=== PATIENT | female | born 1985 | race Caucasian/White ===

== ENCOUNTER 2020-08-28 14:11 | Emergency (ER) | payer BC, SELFPAY ==
[2020-08-28 14:10] VITALS: BP 119/73; PULSE 96; RESP 18; TEMP 36.6; O2SAT 100
--- NOTE | 2020-08-28 14:19 | ED.ABDPAIN ---
HPI - Abdominal Pain General Chief Complaint: Abdominal Pain Stated Complaint: back pain/21 weeks Time Seen by Provider: 08/28/20 14:12 History of Present Illness HPI narrative: bilateral lower back pain radiating to the flanks and lower abdomen since earlier this afternoon. Severe. Exacerbated by movement. Associated with nausea. Additionally she reports a migraine headache. All symptoms started after an argument with her son. She is 21 weeks . She has never had this type of pain before. Related Data Home Medications Medication Instructions Recorded Confirmed fluoxetine [Prozac] 20 mg PO DAILY 08/28/20 [id number] tablet PO 08/28/20 [] zolpidem [Ambien] 10 mg PO HS PRN 08/28/20 Allergies Allergy/AdvReac Type Severity Reaction Status Date / Time No Known Allergies Allergy Verified 08/28/20 14:23 Review of Systems Review of Systems: All systems reviewed & are unremarkable except as noted in HPI and below Constitutional: Constitutional: Reports no additional constitutional complaints ENT: Reports system reviewed and no additional complaints, except as documented Cardiovascular: Cardiovascular: Denies chest pain Respiratory: Respiratory: Denies dyspnea Gastrointestinal: Gastrointestinal: Reports abdominal pain and Reports nausea Genitourinary: Genitourinary: Reports no additional female genitourinary complaints, Denies abnormal vaginal bleeding and Denies vaginal discharge Musculoskeletal: Musculoskeletal: Reports back pain Neurologic: Reports system reviewed and no additional complaints, except as documented Psychiatric: Psychiatric: Reports anxiety [facility] Past Medical History Medical History (Updated 08/28/20 @ 16:06 by Darien Jung MD) Anxiety Migraine Social History Social History (Updated 08/28/20 @ 14:32 by Darien Jung MD) Smoking status: Never smoker Exam Const: General: healthy appearing and alert Orientation/consciousness: patient oriented x3 Other: mild distress HENMT: Head: normal to inspection Neck: Neck: normal visual inspection Resp: Effort & Inspection: normal respiratory effort Auscultation: clear to auscultation bilaterally Cardio: Rate: regular rate Rhythm: regular rhythm GI: Other: Gravid, nontender Back/Spine/Pelvis: Other: lumbar paraspinal tenderness Skin: General skin exam: normal color Neuro: General: patient oriented x3, moves all extremities and no focal motor deficits Speech: normal speech Extrem: General: normal to inspection Psych: Affect: Anxious affect present Course Vital Signs Vital signs: Vital Signs Temperature 36.6 C 08/28/20 14:10 Pulse Rate 96 08/28/20 14:10 Respiratory Rate 18 08/28/20 14:10 Blood Pressure 119/73 08/28/20 14:10 Pulse Oximetry 100 08/28/20 14:10 Temperature 36.4 C L 08/28/20 15:26 Pulse Rate 78 08/28/20 15:26 Respiratory Rate 18 08/28/20 15:26 Blood Pressure 100/57 L 08/28/20 15:26 Pulse Oximetry 100 08/28/20 15:26 MDM - Abdominal Pain MDM Narrative Medical decision making narrative: Headache and back pain significantly improved with treatment. Evaluated by OB and cleared. Differential Diagnosis Differential diagnosis: Likely other (low back strain, migraine, contractions) Medical Records Attestation: I reviewed the patient's medical records. Lab Data Attestation: I reviewed the patient's lab results. Result diagrams: 08/28/20 14:37 08/28/20 14:37 Labs: Lab Results 08/28/20 08/28/20 08/28/20 Range/Units 14:37 14:37 15:38 WBC 11.3 H (4.5-10.0) K/mm3 RBC 4.25 (4.2-5.4) M/mm3 Hgb 13.1 (12.0-15.0) g/dL Hct 38.7 (37.0-47.0) % MCV 91.1 (80-100) fl MCH 30.8 (26-34) pg MCHC 33.9 (32-36) g/dl RDW 13.3 (11.5-14.5) % Plt Count 263 (150-375) k/mm3 MPV 10.5 H (7.4-10.4) fl Immature Gran % (Auto) 1.1 H (0-0.5) % Neut % (Auto)
--- NOTE | 2020-08-28 14:25 | PC.NURSE ---
ob furnace attendant contacted. will come check pt and monitor pt in ed.
[2020-08-28] MEDS: DEXTROSE 5%/0.45% SOD CHL 1,000 ML 1000 ML IV CONT (14:32)
[2020-08-28] MEDS: diazePAM INJ (*CRX) 10 MG/2 ML SYRINGE 5 MG IV PUSH (14:33)
[2020-08-28] MEDS: METOCLOPRAMIDE HCL INJ 10 MG/2 ML VIAL IV PUSH (14:34)
--- NOTE | 2020-08-28 14:36 | PC.NURSE ---
OB RN in room for monitoring at this time.
[2020-08-28 14:47] LABS: Basophils Absolute Auto 0.1 K/mm3 (0.0-0.1); Basophils Percent Auto 0.4 % (0.2-1.2); Eosinophils Absolute Auto 0.2 K/mm3 (0-0.3); Eosinophils Percent Auto 1.8 % (0-4.4); Hematocrit 38.7 % (37.0-47.0); Hemoglobin 13.1 g/dL (12.0-15.0); Immature Granulocyte Absolute 0.12 K/mm3 (0.00-0.031); Immature Granulocyte Percent A 1.1 % (0-0.5); Lymphocytes Absolute Auto 1.66 K/mm3 (0.9-3.2); Lymphocytes Percent Auto 14.7 % (18.3-44.2); Mean Corpuscular HGB Conc 33.9 g/dl (32-36); Mean Corpuscular Hemoglobin 30.8 pg (26-34); Mean Corpuscular Volume 91.1 fl (80-100); Mean Platelet Volume 10.5 fl (7.4-10.4); Monocytes Absolute Auto 0.7 K/mm3 (0.1-0.6); Monocytes Percent Auto 6.4 % (2.6-8.5); Neutrophils Absolute Auto 8.6 K/mm3 (1.3-6.7); Neutrophils Percent Auto 75.6 % (45.5-73.1); Platelet Count Result 263 k/mm3 (150-375); Red Blood Count 4.25 M/mm3 (4.2-5.4); Red Cell Distribution Width 13.3 % (11.5-14.5); White Blood Count 11.3 K/mm3 (4.5-10.0)
--- NOTE | 2020-08-28 14:52 | PC.NURSE ---
EAB2, at 21 2/7 weeks , present to ER with back pain and flank pain. Patient denies contractions. Monitored for Approx 25 minutes. FHt's 145's, moderate variability, reassuring for gestational age. No contractions were noted on monitor or palpated. Good movement noted.
[2020-08-28 15:02] LABS: Alanine Aminotransferase 19 U/L (4-35); Albumin Level 3.7 g/dL (3.5-5.1); Alkaline Phosphatase 62 U/L (38-126); Anion Gap 4 mmol/L (8-16); Aspartate Amino Transferase 23 U/L (14-36); Bilirubin,Total 0.2 mg/dL (0.2-1.3); Blood Urea Nitrogen 9 mg/dL (7-17); Calcium 8.9 mg/dL (8.4-10.2); Carbon Dioxide 24 mmol/L (22-30); Chloride 105 mmol/L (98-107); Estimated CRCL calculation 118 ml/min; Estimated Glomerular Filt Rate > 60; Glucose 83 mg/dL (65-105); Lipase 117 U/L (23-300); Potassium 3.6 mmol/L (3.4-5.0); Sodium 133 mmol/L (137-145)
[2020-08-28 15:26] VITALS: BP 100/57; PULSE 78; RESP 18; TEMP 36.4; O2SAT 100
[2020-08-28 15:50] LABS: Add Urine Microscopic? YES; Appearance Urine Cloudy (Clear); Bacteria Urine 1+ /hpf; Bilirubin Urine Negative (Negative); Blood Urine Negative (Negative); Color Urine Straw (Yellow); Glucose Urine UA 1+ mg/dL (Negative); Ketones Urine Negative (Negative); Leukocyte Esterase Ur Negative LEU/UL (Negative); Nitrate Urine Negative (Negative); Protein Urine Negative (Negative); RBC Urine 0-2 /hpf (0-2); Specific Grav Ur 1.005 (1.001-1.035); Squamous Epithelial Cell Urine Moderate /hpf (Few); Urobilinogen Urine Negative mg/dL (<2.0); WBC Urine 0-3 /hpf
[2020-08-28 16:30] VITALS: BP 101/65; PULSE 102; RESP 25; TEMP 36.8; O2SAT 100
== END 2020-08-28 16:35 | disposition home or self-care (01) ==
PROVIDERS: Emergency Provider Emergency Medicine; PCP Internal Medicine
DX: O99.891 Other specified diseases and conditions complicating pregnancy (principal); M54.5 Low back pain; O99.352 Diseases of the nervous system complicating pregnancy, second trimester; G43.909 Migraine, unspecified, not intractable, without status migrainosus; O99.342 Other mental disorders complicating pregnancy, second trimester; F41.9 Anxiety disorder, unspecified; Z3A.21 21 weeks gestation of pregnancy
CPT/HCPCS: 36415; 80053; 81001; 83690; 85025; 96361; 96374; 96375; 99284; J2765; J3360

== ENCOUNTER 2024-09-23 05:49 | Emergency (ER) | payer BC, SELFPAY ==
--- NOTE | ~2024-09-23 | CT_ITS ---
Noncontrast CT scan of the cervical spine Technique: Multiple contiguous axial [address] images of the cervical spine were obtained and rec onstructed in 2D sagittal and coronal planes on the acquisition scanner. Dose reduction technique was used on this scan by utilizing automated exposure control, adjustment of the mA and/or kV according to patient size. The dose-length product (DLP) was 549.74 mGy-cm. Clinical History: Pain Findings: No acute fractures or dislocations. 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 The intervertebral disc spaces are preserved. No prevertebral soft tissue swelling. Impression: No acute fracture or subluxation of the cervical spine. 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 Reviewed, dictated and finalized at location . Impression: No acute fracture or subluxation of the cervical spine. 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
--- NOTE | ~2024-09-23 | CT_ITS ---
Non-contrast Head CT History: Status post fall Technique: Axial non-contrast imaging of the brain was performed. Dose reduction technique was used on this scan by utilizing automated exposure control and iterative reconstruction technique. The dose -length product (DLP) was 605.33 mGy-cm. Findings: There is no evidence of intracranial hemorrhage, mass lesion, or acute infarct. Brain par enchyma appears normal. The ventricles and subarachnoid spaces are normal in size. The calvarium ap pears normal. The visualized paranasal sinuses and mastoid air cells are clear. Impression: No significant abnormality seen. Reviewed, dictated and finalized at location . Impression: No significant abnormality seen.
--- OUTSIDE RECORDS SUMMARY | 2024-09-23 05:52 | XMS_ITS | Continuity of Care Document ---
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 Role Phone Romeo Gaitan MD Unavailable Unavailable Allergies, Adverse Reactions, Alerts Substance Reaction Status Criticality No Known Allergies Active No Inform ation Medications Medication Instructions Dosage Effective Dates (start - stop) Status Comments Adderall 20 mg tablet take 1 tablet by o ral route 2 times every day before breakfast and at noon 20 MG - Active Wellbutrin XL 150 mg 24 hr tablet, extended release take 1 tablet by oral route every morning 150 MG - Active Ambien 10 mg tablet take 1 tablet by ora l route every day at bedtime 10 MG - Active Procedures Procedure Date PREV VISIT, EST, AGE 18-39 OFFICE/OUTPATIENT VISIT, EST OFFICE/OUTPATIENT VISIT, EST OFFICE/OUTPATIENT VISIT, EST OFFICE/OUTPATIENT VISIT, EST OFFICE/OUTPATIENT VISIT, EST OFFICE/OUTPATIENT VISIT, EST OFFICE/OUTPATIENT VISIT, EST OFFICE/OUTPATIENT VISIT, EST PREV VISIT, NEW, AGE 18-39 Advance Directives Directive Yes / No Effective Date File Name No Information Encounters Encounter Description Practice Location Reason(s) For Visit Diagnoses Date Provider Providers Copied on Encounter PREV VISIT, EST, AGE 18-39 [facility], [address], [place], [id number], [place] tel:[phone] [facility] physical (chief complaint) Encounter for general adult medical exam w abnormal findingsPrimary insomniaGeneralized Anxiety DisorderAttention deficit 2 Arnie Walters. [address], [place], [place], [address] , [place]. tel:[phone] OFFICE/OUTPA TIENT VISIT, [facility], [address], [place], [place], [address], [place] tel:[phone] [facility] sinus1 (chief complaint) insomnia1 (chief complaint) headache1 (chief complaint) InsomniaMigraineAcu te sinusitis 9 Arnie Walters. [address], [place], [place], [address] , [place]. tel:[phone] OFFICE/OUTPA TIENT VISIT, [facility], [address], [place], [place], [address], [place] tel:[phone] [facility] insomnia1 (chief complaint) anxiety1 (chief complaint) headache1 (chief complaint) allergy1 (chief complaint) MigraineInsomniaGen eralized Anxiety DisorderAllergic rhinitis 9 Arnie Walters. [address], [place], [place], [address] , [place]. tel:[phone] OFFICE/OUTPA TIENT VISIT, [facility], [address], [place], [place], [address], [place] tel:[phone] [facility] insomnia1 (chief complaint) anxiety1 (chief complaint) migraine1 (chief complaint) allergy1 (chief complaint) Allergic rhinitisInsomniaMig raineGeneralized Anxiety Disorder 8 Arnie Walters. [address], [place], [place], [address] , [place]. tel:[phone] Referring Provider: Li [address], [place], [place], [address]. tel:[phone] OFFICE/OUTPA TIENT VISIT, [facility], [address], [place], [place], [address], [place] tel:[phone] [facility] migraine1 (chief complaint) anxiety1 (chief complaint) insomnia1 (chief complaint) MigraineInsomniaGen eralized Anxiety Disorder 8 Arnie Guzman [address], [place], [place], [address] , [place]. tel:[phone] Referring Provider: Li [address], [place], [place], [address]. tel:[phone] OFFICE/OUTPA TIENT VISIT, [facility], [address], [place], [place], [address], [place] tel:[phone] [facility] headache1 (chief complaint) insomnia1 (chief complaint) anxiety1 (chief complaint) InsomniaMigraineGen eralized Anxiety Disorder 8 Arnie Guzman [address], [place], [place], [address] , [place]. tel:[phone] Referring Provider: Li Hernandez [address], [place], [place], [address]. tel:[phone] OFFICE/OUTPA TIENT VISIT, [facility], [address], [place], [place], [address], [place] tel:[phone] [facility] headache1 (chief complaint) insomnia1 (chief complaint) anxiety1 (chief complaint) InsomniaGeneralized Anxiety DisorderMigraineTob acco use [address] Arnie [address], [place], [place], [address] , [place]. tel:[phone] Referring Provider: Li Hernandez [address], [place], [place], [address]. tel:[phone] OFFICE/OUTPA TIENT VISIT, [facility], [address], [place], [place], [address], [place] tel:[phone] [facility] anxiety1 (chief complaint) insomnia1 (chief complaint) tobacco1 (chief complaint) InsomniaTobacco useGeneralized Anxiety Disorder 7 Arnie Guzman [address], [place], [place], [address] , . tel:[phone] Referring Provider: Romeo Gaitan, [address], [place], [place], [address]. tel:[phone] PREV VISIT, NEW, AGE 18-39 [facility], [address], [place], [place], [address], [place] tel:[phone] [facility] PHysical (chief complaint) Encntr for general adult medical exam w/o abnormal findings 7 Arnie Walters. [address], [place], [place], [address] , [place]. tel:[phone] Family History Family Member Type Diagnosis Age At Onset Mother Problem (finding) Alive and well Father Problem (finding) Alive and well Sister Problem (finding) Alive and well Payers Payer name Insurance type Covered democrat ID Authoriza tion(s) No Information Social History Type Description Quantity Date Captured Comments Alcohol Use Details Caffeine Use Details coffee 2 cups per day Tobacco Use Status Ex-cigarette smoker Smoking Status Current some day smoker Smoking Tobacco Use Details Cigarette: Age Started: 20, Age Stopped: 30, Years Used 10 Cigarette: 1 Packs per day, Pack Year: 10 Sex Female Vital Signs Date / Time: Height Weight BMI Pulse Rate Blood Pressure Temperature Respiratory Rate Body Surface Area Head Circumference BMI percentile Pulse Ox Inhaled Ox 12:24 PM 62.60 in 134.00 lbs 24.0 4 kg/m eter (2) 86 /min 118/88 mm[Hg] 98.4 F 16 /min Chief Complaint And Reason For Visit From encounter dated '01/24/2022 12:20'. physical (chief complaint). Description: Pt needs annual physical pt has chronic anxiety and depression Pt takes Wellbutrin and doing ok. Pt denies any suicidal or homicidal thought pt denies any crying spells. Pt has insomnia Pt takes ambien qhs and doing ok. Pt has ADD. Pt takes adderall 20 mg BID and doing ok. Her psychiatrist got sick and retired and her new psychiatrist does not take over until April. Pt needs medication refilled for now. Pt will see new psychiatrist in April. Plan Of Treatment Date Type Action Status Goal Special diet education compl eted Goal Tobacco cessation counseling completed Goal Tobacco cessation counseling completed Goal Tobacco cessation counseling completed History Of Present Illness Encounter Date Complaint History Of Prese nt Illness physical Pt needs annual physical pt has chronic anxiety and depression Pt takes Wellbutrin and doing ok. Pt denies any suicidal or homicidal thought pt denies any crying spells. Pt has insomnia Pt takes ambien qhs and doing ok. Pt has ADD. Pt takes adderall 20 mg BID and doing ok. Her psychiatrist got sick and retired and her new psychiatrist does not take over until April. Pt needs medication refilled for now. Pt will see new psychiatrist in April. insomnia1 Pt has insomnia Pt takes ambien qhs PRN and doing ok, Pt denies an snoring sinus1 Pt c/o sinus con gestion, purulent sinus drainage, sinus pressure, headache, for one week pt denies any sore throat or earache. Pt denies any fever Pt denies any recent ravel. Pt tried OTC meds headache1 Patient has migr dolly headache. Patient takes propranolol. Patient takes Maxalt PRN for acute headache. Patient has headache once or twice per month. allergy1 Pt has chronic s inus allergy. Pt doing ok with josephine D Pt denies any purulent dinus drainage and she denies any sinus pain headache1 Patient has migr dolly versus cluster headache. Patient takes propranolol and doing ok. Patient failed Topamax in the past. Patient states that she has mild headache about once per week. Patient states that Maxalt does relieve the headache. Patient denies any acute headache. Pt only takes propranolol 20 mg once per day and she wants to continue current dose. Pt states that 40 mg BID causes lightheadedness. 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 Patient denies any suicidal homicidal thoughts. Patient denies any crying spells. Patient takes Wellbutrin and prozac and doing okay. Patient noticed more motivation. Patient denies any hopelessness. insomnia1 Patient has rn plastic surgery priyanka insomnia. Patient denies any snoring. Patient takes Ambien and doing ok. migraine1 Patient has migr dolly versus cluster headache. Patient states that propranolol is helping. Patient failed Topamax in the past. Patient states that she has mild headache about once per week now. Patient states that Maxalt does relieve the headache. Patient denies any acute headache. 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 Patient denies any suicidal homicidal thoughts. Patient denies any crying spells. Patient takeswellburrin and prozac and doing okay. Patient noticed more motivation. Patient denies any hopelessness. insomnia1 Patient has rn plastic surgery priyanka insomnia. Patient denies any snoring. Patient takes Ambien again okay allergy1 Patient has rn plastic surgery priyanka sinus allergy. Patient takes Josephine-D daily. Patient needs refill. Patient denies any purulent sinus drainage. insomnia1 Pt doing ok with ambien. pt denies any snoring anxiety1 Pt has chronic a nxiety and depression Pt states that she feels more depressed recently and she wants to go back to prozac and wellbutrin again. Pt is on wellbutrin only now pt denies any suicidal or homicidal thought pt denies any crying spells migraine1 Pt has migraine headache with throbbing and photophobia without nausea. Pt has some injection right eye during headache which is always on right side. Pt denies any trigger factor. Pt denies any head injury Pt denies waking up at night with headache. pt denies any vision change Pt has headache 3 times per week vs 5 times per week Pt denies any acute headache headache1 Pt has migraine headache. Pt has headache daily pt has throbbing headache without photophobia. Pt does become sensitive to light during headache. pt has headache for years Pt denies any worsening headache Pt denies any head injury or waking up at night with headache Pt states that topamax did not help at all anxiety1 Pt has chronic a nxiety and depression pt is on wellbutrin now and she is doing well Pt denies any suicidal or homicidal thought Pt denies any crying spels insomnia1 Pt doing ok with ambien qhs PRN insomnia1 Pt has chronic i nsomnia. pt takes ambien qhs PRn and doing ok. Pt denies any snoring anxiety1 Pt has chronic a nxiety and depression Pt stopped prozac on her own Pt is only on wellbutrin now and she is doing ok. Pt also quit smoking. headache1 Pt has chronic m igraine since 1st grade Pt had normal MRI of brain in the past Pt denies any head injury. Pt denies waking up at night with headache. Pt has headache daily. Pt has photophobia and nausea with headache Pt states that she has been having headache daily during the last several weeks. tobacco1 Pt quit smoking. Pt is last week for 7 mg patch. Pt has not smoked since two months ago. Pt also takes zyban. Pt wants to continue on it insomnia1 Pt has insomnia. Pt denies any snoring or any trouble with breathing at night. pt takes ambien qhs PRn and doing ok anxiety1 Pt has chronic a nxiety and depression. Pt takes prozac and doing ok. Pt denies any suicidal or homicidal thought. Pt denies any cyring spells PHysical Pt needs annual physical. pt has chronic anxiety and depression. Pt takes prozac and doing ok Pt denies any sucidal or homicidal thought Pt has chronic insomnia and she takes ambien qhs and doing ok pt deneis any snoring. Pt recenlty started wellbutrin about one month ago for smoking cessation and she has not smoked for 4 weeks. Pt also is on patch now. Pt is on week 5 of 21 mg patch. Pt denies any other complaints Instructions Date Instruction Additional Infor tereso Special diet education Related t o Body mass index (BMI) 26.0-26.9, adult Instructions given f or sinus irrigation. Related to Allergic rhinitis Patient instructed o n use of saline sprays. Related to Allergic rhinitis Increase physical activity Relat ed to Insomnia Increase physical activity Relat ed to Insomnia Increase physical activity Relat ed to Insomnia Increase activity. Related to En cntr for general adult medical exam w/o abnormal findings Quit smoking. Related to Encnt r for general adult medical exam w/o abnormal findings Assessments Type Assessment Date assessment Encounter for general adult medi tana exam w abnormal findings assessment Primary insomnia assessment Generalized Anxiety Disorder Jan assessment Attention deficit Mental Status Date Cognitive Assessment Orientation - [place] ed to time, place, person, situation.
--- OUTSIDE RECORDS SUMMARY | 2024-09-23 05:52 | XMS_ITS | Referral Summary ---
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 Role Phone Laron Mckeon MD Primary Care Provider + Allergies No known active allergies Medications zolpidem (AMBIEN) 10 mg tablet 08/17/2020 Active fexofenadine (STACI) 60 mg tablet Take 1 tablet (60 mg total) by mouth daily Active dextroamphetamin e-amphetamine (AdderalL) 20 mg tablet 06/05/2021 Active FLUoxetine (PROzac) 20 mg capsuleIndicatio ns:major depressive disorder 1 po every day 30 tablet/capsul e 3 03/30/2024 Active Active Problems Problem Noted Date Diagnosed Date Abnormal uterine bleeding (AUB) 04/01/2024 Unwanted fertility 04/01/2024 IUD contraception 10/01/2022 Overview (10/01/2022): ina 10-01-2022 H/O section complicating 11/2020 Overview (11/03/2020): LTCS 2009 41.5 weeks. IOL and at 2cm for 36hr on/off OT Horrible c/s experience at [facility]--given ketamine Unsure on TOLAC Risk ut rupture ~1% reviewed 6-3 discussion: Desires TOLAC if spont labor, c/s at EDC if not delivered Depression 10/06/2020 Overview (12/01/2020): No hosp Denies SI/HI H/o prozac with good response in the past. Was put on wellbutrin instead of prozac but stopped on her own b/c not helping at all and wants to go back to prozac. Sertraline in past did not work for her and they keep wanting her to try that instead of prozac and told her if put on prozac they would take her off in T3 and that sounded terrible to her. As of -6 on no meds and feeling very depressed. Anhedonia. No energy. No SI. No HI. Tearful. Down on herself. No anxiety. No sallie. Never bipolar. Restart prozac at 5mg daily for a week in Am and increase to 10mg. SSRI in preg counseling completed.will not plan on d/c in T3. EPDS screen =19 on -6 (scanned). No SI. 6-3 reports mood is great! 7-1 mood is more blah . Talks with therapist every 2 weeks. appt next week. No si/hi. Primary insomnia--nightly ambien use 10/06/2020 Overview (12/01/2020): Takes 10mg mabien nightly for 14 years Tried flexeril, melatonin and all the OTC meds and none work at all. 5-6 visit pt not really ready to address this issue ( x ) readdressed. Pt states 'no way I can wean off'. Prescribed by psychiatry dr kumar ( x) sleep consult. See 11-30 note Assessment & Plan (12/21/2020 5:02 PM CDT): 1. Chronic, improving but still poorly controlled 2. Reinforced stimulus control when she is unable to fall asleep at night 3. Will continue the podcasts as well as other interventions to help with sleep 4. Will address heartburn as noted below as this appears to be main issue with her sleep as well 5. Will begin working on tapering of the Ambien after she delivers Assessment & Plan (11/30/2020 5:26 PM CDT): 1. Chronic, poorly controlled 2. 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 However since becoming , the Ambien is not working 4. Discussed ways to help her mind and body help her fall asleep including listening to a podcast when in bed, starting her nightly routine at 10:00 p.m. instead of 8:00 p.m., calming activities to do when she cannot fall asleep, not getting into bed until she is very tired 5. Also believe worsening restless legs of playing overall 6. Patient has a history of iron deficiency anemia which is most likely worsened by 7. Will prescribe ferrous sulfate combined with vitamin-C Resolved Problems Problem Noted Date Diagnosed Date Resolved Date care following delivery 01/06/2021 02/15/2021 Overview (01/09/2021): # ID: Afebrile. No signs/symptoms of infection. #COVID-19: Previously received COVID-19 Vaccination # Heme: EBL 700 mL. No symptoms acute blood loss anemia. POD1 Hb 9.7 # CV/Pulm: Vital signs stable, within normal limits. # GI/: Tolerating PO. Adequate urine output. # Pain: Well controlled with above regimen. Has gabapentin, flexeril and lidocaine patches scheduled # Post DVT prophylaxis: The patient has the following MAJOR risk factors none and the following MINOR risk factors BMI 30-39, delivery and preeclampsia. enoxaparin 40 mg daily ordered for VTE prophylaxis. # MOC: nexplanon at 6 wk Declines interval contraception. # MOF: # COVID Vaccination Status: Previously received # Disposition: Follow up to be scheduled with primary OB. Continue routine care. # Depression: continue home Prozac, mood stable Encounter for induction of labor 01/05/2021 01/19/2021 Overview (01/05/2021): 1. Elective Induction of Labor: Admit to L&D. Consents signed and placed in chart. Send CBC/T&S. Labor augmentation with pit and cook catheter. 2. FWB: Continuous monitoring. tracing category I 3. ID: HIV negative. GBS negative. Membrane Status: intact. 4. Indications for UDS: none. Verbal consent obtained for UDS: Not indicated 5. MOF: Plans to breastfeed. 6. MOC: Plans to use nexplanon for contraception. 7. Pain management: Desires epidural . 8. Post DVT prophylaxis: The patient has the following MAJOR risk factors none and the following MINOR risk factors BMI 30-39. SCDs will be ordered for VTE prophylaxis . 9. COVID Vaccine Status: Previously received 10. COVID Test Status: Previously received COVID-19 vaccine Gastroesophageal reflux dise ase without esophagitis 12/21/2020 09/19/2021 Assessment & Plan (12/21/2020 5:01 PM CDT): 1. Chronic, poorly controlled 2. Believe this is interfering with her sleep 3. Will start famotidine given her Normal obstetric ultrasound scan in second trimester 10/10/2020 01/19/2021 Overview (10/17/2020): Outside [facility] scan 08-22-2020 EDC 01-09-21 by US, AGA 52%, nml limited astrid, breech, post placenta. (x ) [facility]: 10-13-20 EFW 19%, nml astrid. rgs Normal in multigra abiel in third trimester 10/06/2020 01/19/2021 Overview (12/27/2020): 06-30-19 outside labs A positive, negative antibody screen Hemoglobin 14.2, platelets not recorded RPR nonreactive Urine culture negative Hep B surface antigen nonreactive HIV nonreactive Varicella immune rubella immune 5-10 GC/CT neg.rgs Midtrimester Labs Lab Results Component Value Date [id number] 97 10/06/2020 Lab Results Component Value Date HGB 12.0 10/06/2020 LABPLAT 262 10/06/2020 Lab Results Component Value Date [id number] Nonreactive 10/06/2020 LABRPR Nonreactive 10/06/2020 GBS: Lab Results Component Value Date MICROBIOLOGY Final Report: Negative 12/16/2020 Immunizations Immunization Administration Dates Next Due MMR 01/09/2021(Deferred: No longer needed - rubella immune) Pfizer SARS-CoV-2 Monovalent Vaccination (12+ Yrs) PURPLE 11/29/2020 Tdap 11/03/2020 Social History Tobacco Use Types Packs/Day Years Used Date Smoking Tobacco: Former Smokeless Tobacco: Never Tobacco Cessation:Counseling Given: Not Answered Social Connection and Isolat ion Panel [NHANES] Answer Date Recorded In a typical week, how many times do you talk on the phone with family, friends, or neighbors? More than three times a week 01/07/2021 How often do you get togethe r with friends or relatives? More than three times a week 01/07/2021 How often do you attend chur ch or yarsani services? Never 01/07/2021 Do you belong to any clubs o r organizations such as orthodox groups, unions, fraternal or athletic groups, or school groups? No 01/07/2021 How often do you attend meet ings of the clubs or organizations you belong to? Never 01/07/2021 Are you , , di vorced, , never , or living with a partner? 01/07/2021 AUDIT-C Answer Date Recorded Q1: How often do you have a drink containing alc ohol? Never 12/21/2020 Average Number of Drinks Not on file 021 Q3: How often do you have si x or more drinks on one occasion? Never 12/21/2020 Overall Financial Resource Strain (CARDIA) Answe r Date Recorded How hard is it for you to pa y for the very basics like food, housing, medical care, and heating? Not hard at all 01/07/2021 Hunger Vital Sign Answer Date Recorded Within the past 12 months, y ou worried that your food would run out before you got the money to buy more. Never true 01/08/20 21 Within the past 12 months, t he food you bought just didn't last and you didn't have money to get more. Never true 01/07/2021 PRAPARE - Transportation Answer Date Re corded In the past 12 months, has l ack of transportation kept you from medical appointments or from getting medications? No 12/2020 In the past 12 months, has l ack of transportation kept you from meetings, work, or from getting things needed for daily living? No 01/07/2021 Hurt Depression Scale Answer Date Recorded Hurt Depression Scale Total 10 02/13/2021 The thought of harming myself has occurred to me . 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 Last Filed Vital Signs Vital Sign Reading Time Taken Comments Blood Pressure 124/82 03/30/2024 1:06 PM CDT Pulse 80 01/09/2021 7:25 AM CDT Temperature 36.5 C (97.7 F) 01/09/2021 7:25 AM CDT Respiratory Rate 18 01/19/2021 10:29 AM CDT Oxygen Saturation 99% 01/09/2021 7:25 AM CDT Inhaled Oxygen Concentration - - Weight 65.9 kg (145 lb 3.2 oz) 03/30/2024 1:06 P M CDT Height 154.9 cm (5' 1 ) 03/30/2024 1:06 PM CDT Body Mass Index 27.44 03/30/2024 1:06 PM CDT Plan of Treatment Not on file Procedures Procedure Name Priority Date/Time Associated Diagnosis Comments HEPATITIS C ANTIBODY Routine 03/30/2024 1:42 PM CDT Screen for STD (sexually transmitted disease) PAP AND HIGH RISK HPV, REFLEX TO GENOTYPING Routine 09/19/2021 2:32 PM CDT Well woman exam from Last 3 Months or Most Recently Relevant to Health Maintenance Results * Hepatitis C antibody Blood (03/30/2024 1:42 PM CDT) Hep C Ab Nonreactive Nonreactive Comment:Antibodies to HCV no t detected. Does NOT exclude the possibility of recent exposure to HCV. Current interpretive data was last revised on 22 Blood 03/30/2024 1:42 PM CDT 03/30/2024 4:57 PM CDT Minda Bishop MD LAB MICROBIOLOGY - GENERAL ORDERABLES Final Result [facility] Department [place] [address] * Pap and High Risk HPV, reflex to Genotyping (09/19/2021 2:32 PM CDT) Thin prep (Pap test) 09/19/2021 2:32 PM CDT 09/21/2021 12:53 PM CDT Narrative PATHOLOGY [facility] - 09/25/2021 2:37 PM CDT EPIC results best viewed via link to PDF [place] [id number] [facility], [place], [place] [address] Tele: Krys Bowman MD - [employer] CYTOLOGY REPORT Note to Patients: This report may contain a detailed description of human tissue sent by a health care provider to the laboratory for pathologic evaluation. The content of this report is essential for diagnosis and may provide important critical findings. This information may be unfamiliar to patients to review without a medical professional present. It is advised that the patient review this report in the presence of a health care provider who can answer questions and explain the details. Patient Name: SHAQ BLUNT Address: [address], [place] [address] Gender: F : 1985 (Age: 35) Service: Location: [facility] : [id number] Hospital #: [id number] [place] [facility] [place] Taken: 09/19/2021 Reported: 09/25/2021 Physician(s): RAYA Bunch FINAL DIAGNOSIS: Specimen Type: - ThinPrep Pap and HPV w/ reflex Genotyping Statement of Specimen Adequacy: Source: Cervical/Endocervical - Satisfactory for interpretation - Endocervical /Transformation Zone component present - Case screened using computer assisted imaging technology General Categorization: - Negative for intraepithelial lesion or malignancy xbb/09/25/2021 14:37 MARIPOSA Corral (ASCP) Report Reviewed and Electronically Signed By MARIPOSA Corral (ASCP) Clerical Data Follow A; [id number] DIAGNOSIS COMMENT: Ancillary Testing: HPV High Risk Group (16, 18, 31, 33, 35, 39, 45, 51, 52, 56, 58, 59, 66 and 68) - Not Detected Reference Range: Not Detected This test was performed using the ROYER 4800 CLINICAL DIAGNOSIS AND HISTORY Last Menstrual Period: 09/05/2021 REPORT IMAGES AND/OR SCANNED DOCUMENTS ONLY VIEWABLE IN PDF FORMAT The Pap test is a screening test used to aid in the detection of cervical cancer and its precursors. It should not be the sole means by which malignant and premalignant lesions are diagnosed. Both false negative and false positive results may occur. It also has poor sensitivity for the detection of endometrial lesions and should not be used to evaluate suspected endometrial abnormalities. For these reasons it is most important to obtain Pap tests at regular intervals, as recommended by your physician or nurse practitioner. Briseida Hodgson WOOL HAND[employer] LAB CYTOLOGY ORDERABLE S Final Result PATHOLOGY [facility] Laboratory Receiving [address] [place] [address] from Last 3 Months or Most Recently Relevant to Health Maintenance Insurance [employer] [place] [address] [place] Advance Directives For more information, please contact: [phone] * Full Code (Latest Code Status on File) Date Activated Date Inactivated Comments 01/06/2021 4:41 PM 01/09/2021 8:07 PM * Full Code Date Activated Date Inactivated Comments 01/04/2021 11:10 PM 01/06/2021 4:40 PM Full CPR in c ase of cardiopulmonary arrest Care Teams 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
--- OUTSIDE RECORDS SUMMARY | 2024-09-23 05:52 | XMS_ITS | Data Portability ---
Author Organization [facility] Kojo Collier Address [address] [facility] [facility] [place] [address] Care Team Providers Care Shaker Washer Name Role Phone JACQUELIN MONTES Primary Care Provider ROMEO Reynoso Primary Care Provider Assessment No assessment recorded. Plan of Treatment Reminders Order Date Submit Date Provider Last Modified By Organization Details Last Modified Time Details Appointments None recorded. Lab bacterial vaginosis + vaginitis panel, vaginal - Z11.3, Z20.0 2018 019 [facility], [address] [place] [address], [address], [place], [address], 9 20:08:59 HSV (1+2) DNA, qual, PCR, unspecifi ed specimen - Z11.3, Z20.2 2018 019 [facility], [address] [place] [address], [address], [place], [address], 9 20:09:00 culture, vaginal/r ectal, streptoco ccus group B - Z11.3, Z20.2 2018 019 [facility], [address] [place] [address], [address], [place], [address], 9 20:09:00 urinalysi s, dipstick 2018 Katelyn avalos In-Office Order, Internal Use Only DO Not Attach Compendium DO Not Attach Compendium, Do Not Delete/merge, [id number] 9 17:58:26 test, urine 2018 019 [facility] In-Office Order, Internal Use Only DO Not Attach Compendium DO Not Attach Compendium, Do Not Delete/merge, [id number] 9 17:58:26 HIV 1+2 AB + HIV 1 p24 Ag, qualitati ve immunoass ay, serum 2017 018 [facility], [address], [address], [place], [address], 8 08:20:49 RPR (rapid plasma reagin), serum 2017 018 [facility], [address], [address], [place], [address], 8 08:20:48 hepatitis panel (A+B+C), acute, serum 2017 018 [facility], [address], [address], [place], [address], 8 08:20:48 bacterial vaginosis + vaginitis panel, vaginal 2017 018 [facility], [address], [address], [place], [address], 8 06:19:29 test, urine 2017 018 LUIS CARLOS In-Office Order, Internal Use Only DO Not Attach Compendium DO Not Attach Compendium, Do Not Delete/merge, 8 15:49:43 pap, IG + HPV, cervical 2017 018 [facility], [address], [address], [place], [address], 8 13:13:44 Referral None recorded. Procedures None recorded. Surgeries None recorded. Imaging None recorded. Medication Orders Tri-Previ fem (28) 0.18 mg(7)/0.2 15 mg(7)/0.2 5 mg(7)-35 mcg tablet 2019 INTERFACE [facility], [address] [place] [address], [place], [address], 0 16:52:55 multivita min tablet 2019 INTERFACE [facility], [address] [place] [address], [place], [address], 0 16:50:00 calcium 600 mg (as carbonate )-vitamin D3 20 mcg (800 unit) tablet 2019 INTERFACE [facility], [address] [place] [address], [place], [address], 0 16:49:59 Ortho Tri-Cycle n (28) 0.18 mg(7)/0.2 15mg(7)/0 .25 mg(7)-0.0 35 mg tablet 2018 019 INTERFACE [facility], [address] [place] [address], [place], [address], 9 15:02:44 multivita min tablet 2018 019 [facility], [address] [place] [address], [address], 9 15:02:44 calcium 600 mg (as carbonate )-vitamin D3 20 mcg (800 unit) tablet 2018 019 [facility], [address] [place] [address], [place], [address], 0 16:42:48 Ortho Tri-Cycle n (28) 0.18 mg(7)/0.2 15mg(7)/0 .25 mg(7)-0.0 35 mg tablet 2017 018 INTERFACE Not available 8 15:19:13 Patient TargetsNo targets recorded. Patient InstructionsNo instructions recorded. Reason for Referral None Reported. Results Created Date Observation Date Name Description Value Unit Range Abnormal Flag Note LastModifiedBy Organization Detail LastModifiedTime 09/24/19 18 09/24/2017 hepat itis panel (A+B+ C), acute , serum hep A Ab, IgM NEGATI VE negati ve Not Available [facility] ([facility]) [address] [place], [address], 09/24/2017 08:20:48 09/24/19 18 09/24/2017 hepat itis panel (A+B+ C), acute , serum HBsAg screen NEGATI VE negati ve Not Available [facility] ([facility]) [address] [place], [address], 09/24/2017 08:20:48 09/24/19 18 09/24/2017 hepat itis panel (A+B+ C), acute , serum hep B core Ab, IgM NEGATI VE negati ve Not Available [facility] ([facility]) [address] [place], [address], 09/24/2017 08:20:48 09/24/19 18 09/24/2017 hepat itis panel (A+B+ C), acute , serum hep C virus Ab <0.1 s/co_ ratio 0.0-0. 9 Negat vincenzo: < 0.8 Indet ermin ate: 0.8 - 0.9 Posit vincenzo: > 0.9 The CDC recom mends that a posit vincenzo HCV antib south resul t be follo wed up with a HCV Nucle ic Acid Ampli ficat ion test (5507 13). Not Available [facility] ([facility]) [address] [place], [address], 09/24/2017 08:20:48 09/24/19 18 09/24/2017 RPR (rapi d plasm a reagi n), serum RPR NON REACTI VE non reacti ve Not Available [facility] ([facility]) [address] [facility], [place], [address], 09/24/2017 08:20:48 09/24/19 18 09/24/2017 HIV 1+2 AB + HIV 1 p24 Ag, quali tativ e immun oassa y, serum HIV screen 4TH generation wrfx NON REACTI VE non reacti ve Not Available [facility] ([facility]) [address] [facility], [place], [address], 09/24/2017 08:20:49 09/24/19 18 09/25/2017 bacte rial vagin osis + vagin itis panel , vagin al atopobium vaginae LOW - 0 score Not Available [facility] ([facility]) [address] [place], [address], 09/26/2017 06:19:29 09/24/19 18 09/25/2017 bacte rial vagin osis + vagin itis panel , vagin al bvab 2 LOW - 0 score Not Available [facility] ([facility]) [address] [place] [address], [address], 09/26/2017 06:19:29 09/24/19 18 09/25/2017 bacte rial vagin osis + vagin itis panel , vagin al megasphaera 1 LOW - 0 score Calcu late total score by kinjal g the 3 indiv idual bacte rial vagin osis (BV) marke r score s toget her. Total score is inter prete d as follo ws: Total score 0-1: Indic ates the absen ce of BV. Total score 2: Indet ermin ate for BV. Addit ional clini tana data shoul d be evalu ated to estab stacey a diagn osis. Total score 3-6: Indic ates the prese nce of BV. This test was devel oped and its perfo rmanc e jacky cteri stics deter mined by [employer]. It has not been clear ed or appro heron by the Food and Drug Admin istra tion. The FDA has deter mined that such clear ance or appro carlos manuel is not neces linda. Not Available [facility] ([facility]) [address] [place], [address], 09/26/2017 06:19:29 09/24/19 18 09/25/2017 bacte rial vagin osis + vagin itis panel , vagin al marco a albicans, ESSENCE NEGATI VE negati ve Not Available [facility] ([facility]) [address] [place], [address], 09/26/2017 06:19:29 09/24/19 18 09/25/2017 bacte rial vagin osis + vagin itis panel , vagin al marco a glabrata, ESSENCE NEGATI VE negati ve This test was devel oped and its perfo rmanc e jacky cteri stics deter mined by [employer]. It has not been clear ed or appro heron by the Food and Drug Admin istra tion. The FDA has deter mined that such clear ance or appro carlos manuel is not neces linda. Not Available [facility] ([facility]) [address] [facility], [place], [address], 09/26/2017 06:19:29 09/24/19 18 09/25/2017 bacte rial vagin osis + vagin itis panel , vagin al trich vag by ESSENCE NEGATI VE negati ve Not Available [facility] ([facility]) [address] [facility], [place], [address], 09/26/2017 06:19:29 09/24/19 18 09/25/2017 bacte rial vagin osis + vagin itis panel , vagin al chlamydia trachomatis, ESSENCE NEGATI VE negati ve Not Available [facility] ([facility]) [address] [place], [address], 09/26/2017 06:19:29 09/24/19 18 09/25/2017 bacte rial vagin osis + vagin itis panel , vagin al neisseria gonorrhoeae, ESSENCE NEGATI VE negati ve Not Available [facility] ([facility]) [address] [place], [address], 09/26/2017 06:19:29 09/24/19 18 09/26/2017 pap, IG + HPV, cervi tana diagnosis: NEGIRTO WALTER VINCENZO FOR INTRA EPITH ELIAL LESIO N AND TAYLOR REYNOLDS . THIS SPECI MEN WAS RESCR EENED PART OF OUR QUALI TY CONTR OL PROGR AM. Not Available [facility] ([facility]) [address] [place], [address], 09/26/2017 13:13:44 09/24/19 18 09/26/2017 pap, IG + HPV, cervi tana specimen adequacy: NEGRITO Galarza Satis facto ry for evalu ation . Endoc ervic al and/o r squam ous metap lasti c cells (endo cervi tana compo nent) are prese nt. Not Available [facility] ([facility]) [address] [place], [address], 09/26/2017 13:13:44 09/24/19 18 09/26/2017 pap, IG + HPV, cervi tana performed by: NEGRITO Church , Cytot echno logis t (ASCP ) Not Available [facility] ([facility]) [address] [place], [address], 09/26/2017 13:13:44 09/24/19 18 09/26/2017 pap, IG + HPV, cervi tana QC reviewed by: NEGRITO Fuentes r, Son visor y Cytot echno logis t (ASCP ) Not Available [facility] ([facility]) [address] [place], [address], 09/26/2017 13:13:44 09/24/19 18 09/26/2017 pap, IG + HPV, cervi tana . . Not Available [facility] ([facility]) [address] [place], [address], 09/26/2017 13:13:44 09/24/19 18 09/26/2017 pap, IG + HPV, cervi tana note: COMMEN T The Pap smear is a scree ami test desig ector to aid in the detec tion of virgie ligna nt and malig nant condi tions of the uteri ne cervi x. It is not a diagn ostic proce dure and shoul d not be used as the sole means of detec ting cervi tana cance r. Both false -posi tive and false -nega tive repor ts do occur . Not Available [facility] ([facility]) [address] [place], [address], 09/26/2017 13:13:44 09/24/19 18 09/26/2017 pap, IG + HPV, cervi tana test methodology: COMMEN T This liqui d based ThinP rep(R ) pap test was scree ector with the use of an image guide kelvin benedict. Not Available [facility] ([facility]) [address] [place], [address], 09/26/2017 13:13:44 09/24/19 18 09/26/2017 pap, IG + HPV, cervi tana HPV aptima NEGATI VE negati ve This test detec ts fourt een high- risk HPV types (16/1 8/31/ 33/35 /39/4 5/ 51/52 /56/5 8/59/ 66/68 ) witho ut diffe renti ation . Not Available [facility] ([facility]) [address] [place], [address], 09/26/2017 13:13:44 09/24/19 18 09/23/2017 pregn kirsty test, urine HCG negati ve Not Available In-Office Order Internal Use Only DO Not Attach Compendium DO Not Attach Compendium, Do Not Delete/merge, [id number] 09/23/2017 14:49:14 11/11/19 19 11/14/2018 bacte rial vagin osis + vagin itis panel , vagin al trich vag by ESSENCE NEGATI VE negati ve Not Available [facility] ([facility]) [address] [place], [address], 11/18/2018 20:08:59 11/11/19 19 11/14/2018 bacte rial vagin osis + vagin itis panel , vagin al chlamydia trachomatis, ESSENCE NEGATI VE negati ve Not Available [facility] ([facility]) [address] [place], [address], 11/18/2018 20:08:59 11/11/19 19 11/14/2018 bacte rial vagin osis + vagin itis panel , vagin al neisseria gonorrhoeae, ESSENCE NEGATI VE negati ve Not Available [facility] ([facility]) [address] [place], [address], 11/18/2018 20:08:59 11/11/19 19 11/15/2018 bacte rial vagin osis + vagin itis panel , vagin al atopobium vaginae LOW - 0 score Not Available [facility] ([facility]) [address] [place], [address], 11/18/2018 20:08:59 11/11/1911/15/2018 bacte rial vagin osis + vagin itis panel , vagin al bvab 2 LOW - 0 score Not Available [facility] ([facility]) [address] [place], [address], 11/18/2018 20:08:59 11/11/1911/15/2018 bacte rial vagin osis + vagin itis panel , vagin al megasphaera 1 LOW - 0 score Calcu late total score by kinjal gill the 3 indiv idual bacte rial vagin osis (BV) marke r score s toget her. Total score is inter prete d as follo ws: Total score 0-1: Indic ates the absen ce of BV. Total score 2: Indet ermin ate for BV. Addit ional clini tana data shoul d be evalu ated to estab stacey a diagn osis. Total score 3-6: Indic ates the prese nce of BV. This test was devel oped and its perfo rmanc e jacky cteri stics deter mined by [employer]. It has not been clear ed or appro heron by the Food and Drug Admin istra tion. The FDA has deter mined that such clear ance or appro carlos manuel is not neces linda. Not Available [facility] ([facility]) [address] [place], [address], 11/18/2018 20:08:59 11/11/1911/15/2018 bacte rial vagin osis + vagin itis panel , vagin al marco a albicans, ESSENCE NEGATI VE negati ve Not Available [facility] ([facility]) [address] [place], [address], 11/18/2018 20:08:59 11/11/1911/15/2018 bacte rial vagin osis + vagin itis panel , vagin al marco a glabrata, ESSENCE NEGATI VE negati ve This test was devel oped and its perfo rmanc e jacky cteri stics deter mined by [employer]. It has not been clear ed or appro heron by the Food and Drug Admin istra tion. The FDA has deter mined that such clear ance or appro carlos manuel is not neces linda. Not Available [facility] ([facility]) [address] [place], [address], 11/18/2018 20:08:59 11/11/1911/18/2018 HSV (1+2) DNA, qual, PCR, unspe cifie d speci men hsv 1 ESSENCE NEGATI VE negati ve Not Available [facility] ([facility]) [address] [facility], [place], [address], 11/18/2018 20:09:00 11/11/1911/18/2018 HSV (1+2) DNA, qual, PCR, unspe cifie d speci men hsv 2 ESSENCE NEGATI VE negati ve Not Available [facility] ([facility]) [address] [facility], [place], [address], 11/18/2018 20:09:00 11/11/1911/13/2018 cultu re, vagin al/re ctal, strep tococ cus group B strep gp B ESSENCE NEGATI VE negati ve [facility] rs [facility] Disea se Contr ol and Preve ntion ([facility]) and Ameri can Congr ess of Obste trici ans and Gynec ologi sts (ACOG ) guide lines for preve ntion of perin atal group B strep tococ tana (GBS) disea se speci fy co-co llect ion of a vagin al and recta l swab speci men to maxim ize sensi tivit y of GBS detec tion. Per the CDC and ACOG, swabb ing both the lower vagin a and rectu m subst antia lly incre ases the yield of detec tion valeria red with sampl ing the vagin a alone . Penic illin G, ampic illin , or cefaz arron are indic ated for intra partu m proph ylaxi s of perin atal GBS colon izati on. Refle x susce ptibi lity testi ng shoul d be perfo rmed prior to use of clind amyci n only on GBS isola marquez from penic illin -darwin rgic women who are consi dered a high risk for anaph ylaxi s. Treat ment with vanco mycin witho ut addit ional testi ng is warra nted if resis tance to clind amyci n is noted . Not Available [facility] ([facility]) [address] [facility], [place], [address], 11/18/2018 20:09:00 11/11/1911/10/2018 urina lysis , dipst ick Leukocytes Negati ve Not Available In-Office Order Internal Use Only DO Not Attach Compendium DO Not Attach Compendium, Do Not Delete/merge, 11/10/2018 14:57:05 11/11/1911/10/2018 urina lysis , dipst ick Nitrite negati ve Not Available In-Office Order Internal Use Only DO Not Attach Compendium DO Not Attach Compendium, Do Not Delete/merge, 11/10/2018 14:57:05 11/11/19 19 11/10/2018 urina lysis , dipst ick Urobilinogen .2 Not Available In-Of fice Order Internal Use Only DO Not Attach Compendium DO Not Attach Compendium, Do Not Delete/merge, 11/10/2018 14:57:05 11/11/1911/10/2018 urina lysis , dipst ick Protein Negati ve Not Available In-Office Order Internal Use Only DO Not Attach Compendium DO Not Attach Compendium, Do Not Delete/merge, 11/10/2018 14:57:05 11/11/1911/10/2018 urina lysis , dipst ick pH 6.5 Not Available In-Office Order Internal Use Only DO Not Attach Compendium DO Not Attach Compendium, Do Not Delete/merge, 11/10/2018 14:57:05 11/11/1911/10/2018 urina lysis , dipst ick Blood Negati ve Not Available In-Office Order Internal Use Only DO Not Attach Compendium DO Not Attach Compendium, Do Not Delete/merge, 11/10/2018 14:57:05 11/11/1911/10/2018 urina lysis , dipst ick Specific [place] 1.010 Not Available In-Off ice Order Internal Use Only DO Not Attach Compendium DO Not Attach Compendium, Do Not Delete/merge, 11/10/2018 14:57:05 11/11/1911/10/2018 urina lysis , dipst ick Ketone Negati ve Not Available In-Office Order Internal Use Only DO Not Attach Compendium DO Not Attach Compendium, Do Not Delete/merge, 11/10/2018 14:57:05 11/11/19 19 11/10/2018 urina lysis , dipst ick Bilirubin Negati ve Not Available In-Office Order Internal Use Only DO Not Attach Compendium DO Not Attach Compendium, Do Not Delete/merge, [id number] 11/10/2018 14:57:05 11/11/19 19 11/10/2018 urina lysis , dipst ick Glucose Negati ve Not Available In-Office Order Internal Use Only DO Not Attach Compendium DO Not Attach Compendium, Do Not Delete/merge, [id number] 11/10/2018 14:57:05 11/11/19 19 11/10/2018 pregn kirsty test, urine HCG negati ve Not Available In-Office Order Internal Use Only DO Not Attach Compendium DO Not Attach Compendium, Do Not Delete/merge, [id number] 11/10/2018 14:57:07 Result Notes None recorded. Problems Name Problem SNOMED Code Status Onset Date Resolution Date Notes Provider Name and Address Organization Details Recorded Time Body mass index 25-29 - overweight 904291555 Completed 201711/09/2019 Travis gutiérrez, [place] - [facility] 0 16:51:33 Ex-smoker 5332594 Completed 201711/09/2019 Travis gut[place]ér[place], [place] - [facility] 0 16:51:42 Allergic disposition 155617084 Completed 201711/09/2019 Travis gut[place] - [facility] 0 16:50:15 Generalized anxiety disorder 55692097 Active 2019 Travis gut[place]ér[place], [place] - [facility] 0 16:50:58 Depressive disorder 47156002 Active 2019 Travis gutiérrez, [place] - [facility] 0 16:51:06 Problem Notes None recorded. Procedures Surgical History Date Name Laterality Status Provider Name and Address Organization Details Recorded Time 8 Date of Last Pap Smear completed Junior Rivero [place] [facility] 11/10/2018 15:01:46 0 Caesarean Section completed Rima Kelly [place] - [facility] 09/23/2017 14:52:57 9 Ovarian Cystectomy completed Stefani GILDARDO Milan [facility] 11/09/2019 16:48:34 Other completed Rima GILDARDO Kelly [facility] 09/23/2017 14:54:15 Imaging Results None recorded. Procedure Notes None recorded. Medical Equipment None Reported. Allergies No known drug allergies Medications Name Sig Start Date Stop Date Status Note LastModified by Organization Details LastModified Time multivitamin tablet Take 1 tablet every day by oral route. 2019 active Not Available Not Available Not Avai lable propranolol 10 mg tablet Take 2 tablets 3 times a day by oral route. active Not Available Not Available No t Available Sandra-D 12 Hour 60 mg-120 mg tablet,exten ded release Take 1 tablet twice a day by oral route. 11/08 completed Not Available Not Available Not Available Ambien 10 mg tablet Take 1 tablet every day by oral route. active Rx by Dr. Gaitan Not Available Not Available Not Available Sprintec (28) 0.25 mg-0.035 mg tablet Take 1 tablet every day by oral route. 09/23 completed Not Available Not Available Not Available Tri-Previfem (28) 0.18 mg(7)/0.215 mg(7)/0.25 mg(7)-35 mcg tablet TAKE ONE TABLET BY MOUTH EVERY DAY 2019 active Not Available Not Available Not Avai lable calcium 600 mg (as carbonate)-v itamin D3 20 mcg (800 unit) tablet Take 1 tablet twice a day by oral route for 30 days. 2019 active Not Available Not Available Not Avai lable bupropion HCl 150 mg tablet,12 hr sustained-re lease(smokin g deterrent) Take 1 tablet twice a day by oral route. active Rx by Dr. Gaitan Not Available Not Available Not Available Vitals Date Recorded Body height Body mass index (BMI) Body weight Oxygen saturation Oxygen saturation in Arterial blood by Pulse oximetry Heart rate Body temperature Systolic blood pressure Diastolic blood pressure Provider Name and Address Organization Details Last Updated DateTime 8 154.94 cm 25.6 kg/m2 18593.7 7 g 99 % 99 % 94 /min 98.3 [degF] 120 mm[Hg] 74 mm[Hg] Rima GILDARDO Kelly [facility] 8 14:47:51 Date Recorded Body weight Systolic blood pressure Diastolic blood pressure Provider Name and Address Organization Details Last Updated DateTime 11/10/2018 79391.93 g 128 mm[Hg] 72 mm[Hg] Mildred Arambula MA [facility] 11/10/2018 14:57:16 Date Recorded Body height Body mass index (BMI) Body weight Provider Name and Address Organization Details Last Updated DateTime 11/09/2019 154.94 cm 26.5 kg/m2 90992.93 g Stefani Milan MA [facility] 11/09/2019 16:40:59 Social History Question Answer Notes LastModified by Organizat ion Details LastModified Time Tobacco Smoking Status Former Smoker Rima Kelly MA null, [facility] 09/23/2017 14:50:22 Do You Have An Advance Directive? No Information not available 09/23/2017 What Is Your Level Of Alcohol Consumption? Occasional Information not available 09/23/2017 What Is Your Level Of Caffeine Consumption? Occasional Information not available 09/23/2017 Can Child Swim? Yes Informati on not available 09/23/2017 How Much Tobacco Do You Chew? None Information not available 09/23/2017 Are You Currently Employed? Yes Information not available 09/23/2017 What Type Of Diet Are You Following? REGULAR Information not available 09/23/2017 Which Illicit Or Recreational Drugs Have You Used? None Information not available 09/23/2017 Do You Or Have You Ever Used E-cigarettes Or Vape? Never Used Electronic Cigarettes Information not available 11/09/2019 Education 4 Year College Informatio n not available 09/23/2017 What Is Your Occupation? [employer] Information not available 09/23/2017 Swimming/diving No Informati on not available 09/23/2017 Are There Any Guns Present In Your Home? No Information not available 09/23/2017 Hard Of Hearing Or Deaf In One Or Both Ears? No Information not available 09/23/2017 Legally Blind In One Or Both Eyes? No Information no t available 09/23/2017 Live Alone Or With Others? With Others Information not available 09/23/2017 What Was The Date Of Your Most Recent Tobacco Screening? 11/09/2019 [email or web address] Information not available 11/09/2019 How Many Children Do You Have? 1 Information not available 09/23/2017 Do You Use Protection During Sex? No Information not available 09/23/2017 Seat Belts Used Routinely Yes Information not available 09/23/2017 Are You Sexually Active? Yes Information not available 09/23/2017 Smoke Alarm In Home Yes Information not available 09/23/2017 At What Age Did You Start Smoking Tobacco? 19 Information not available 09/23/2017 Are You Passively Exposed To Smoke? No Information no t available 09/23/2017 Do You Or Have You Ever Used Smokeless Tobacco? Never Used Smokeless Tobacco Information not available 11/09/2019 How Much Tobacco Do You Smoke? 1 PPD Information not available 09/23/2017 General Stress Level Medium Information not available 09/23/2017 Do You Use Sunscreen Routinely? Yes Information not available 09/23/2017 On What Date Was Tobacco Cessation Counseling Provided? 11/09/2019 Information not available 11/09/2019 How Many Years Have You Smoked Tobacco? 12 Information not available 09/23/2017 Sex: Unknown Functional Status Question Answer Note LastModified by Organizat ion Details LastModified Time Are you able to care for yourself? Yes Information not available 09/23/2017 What is your exercise level? Occasional Information not available 09/23/2017 Mental Status None recorded. Family History Relationship Description Onset Age of this Age Resolved Age Notes LastModified by Organization Details LastModified Time Mother Depressive disorder Not available 2017 14:49:36 Mother Hypertensive disorder Not available 2017 14:49:55 Mother Migraine Not available 0 09/23/2017 14:50:05 Father Hypertensive disorder Not available 2017 14:49:55 Medical History Condition Response Other N High Blood Pressure N Breast Cancer N Kidney or Bladder Problems N Depression Y Blood Clots N Lung Disease N GI Problems N Acne N Breast Problem N Eating Disorder N Anemia Y Anesthesia Complications N Headaches/Migraines Y Anxiety Disorder Y Diabetes N Ovarian Cancer N Muscle, Joint, or Bone Problems N Blood Transfusions N Polyps N Acid Reflux (GERD) N Cancer N Abuse/Domestic Violence N Asthma N Endometriosis N High Cholesterol N Hepatitis N Liver Disease N Heart Disease N Headaches Y Pre-Eclampsia N Osteoporosis N Gynecological History Statement/Question Response Flow Moderate Date of LMP 10/24/2017 On BCP's at Conception? N STIs/STDs N HPV Vaccine N Duration of Flow (days) 5 Age at Menarche 16 Current Control Method BCPs Age at First Child 24 Frequency of Cycle (Q days) Sexually Active? Y Menses Monthly N Date of Last Pap Smear 09/23/2017 Sexual Problems? N LMP Approximate Desired Control Method BCPs Obstetrics History GPAL:G 3 P 1 0 2 1 Type Value Multiple Births 0 Full Term 1 Induced 0 Spontaneous 2 Premature 0 Living 1 Ectopics 0 Total 3 Past Encounters Encounter ID Performer Location Encounter Start Date Encounter Closed Date Diagnosis/Indication Diagnosis SNOMED-CT Code Diagnosis ICD10 Code Diagnosis Note [id number] [facility] ([facility]ult [facility]) [address] [place] [address] 09/23/2017 14:24:08 09/23/2017 16:25:05 Gynecologic examination 15062318 Z01.411 Body mass index 25-29 - overweight 792397047 Z68.25 Advised 30 minutes of exercise 5 days/week Advised to not drink her calories Advised 3 balanced meals/day with plenty of fruits and vegetables At [facility] ed risk of sexually transmitted infection 458290669 Z20.2 Ex-smoker 9407649 Z87.89 1 Contraception care 71648 5005 Z30.40 Will change OCP to increase estrogen dosage to hopefully decrease breakthrou gh bleeding - RTC if no improvemen t [id number] [facility] ([facility]) [address] [place] [address] 11/10/2018 14:41:03 11/12/2018 13:01:23 Exposure to sexually transmissible disorder 285355985 Z20.2 Contraception care 04032 5005 Z30.40 Family marisa nning surveillance [id number] Z30.09 [id number] Travis Iniguez ([employer]) [address] [place] [address] 11/09/2019 16:38:21 11/10/2019 07:02:14 Family planning surveillance 740724959 Z30.09 Health Concerns Section Related Observation LastModified by Organization Detai ls LastModified Time None Recorded Concern Status LastModified by Organization Details LastModified Time None Recorded Advance Directives Directive N: Payers Encounter Date Sequence Insurance Name Policy Number Policy Stephens Covered Member ID Stephens Member ID Guarantor Name 11/09/2019 1 *SELF PAY* Me markus Cummings Notes Date Note Type Note Provider Name and Address Organization Details Recorded Time 09/23/2017 text/html Annual GYNReport ed bypatient.History:n o gynecologic complaints; no change in interval history Menstrual cycle:Intervals less than 21 days Urinary symptoms:No hematuria; No incontinence Vulva:No genital lesion Vagina:Normal vaginal discharge Breast:No breast pain; No breast lump; No nipple discharge Current Contraception:Monog amous relationship Sexual complaints:No sexual complaints; No pain during intercourse; Normal libido Menopausal Symptoms:No menopausal symptoms; Normal vaginal lubrication Psychological symptoms:No PMDD;Depression(wel l controlled with Wellbutrin 150mg BID) Preventive measures:Encourage self breast examination; Encourage regular exercise; Encourage no tobacco use 31yr old white female presents today for a WWE. She reports her last papa was 09/27/16. She denies any abnormal paps. She reports doing self breast exams occasionally and that she has never found anything. She has never had a mammogram. She denies any family history of uterine, cervical, or ovarian cancer. She is taking Sprintec for BC but has had breakthrough b leeding the last few cycles. She has periods of 4-5 days every 2 weeks. She denies any urinary problems. She practices unprotected sex with one male partner. She has no current complaints. She is followed by Dr. Romeo Gaitan for PCP. Jacquelin Montes PA-C Attn: Accounting,[address] [place], [address], [place] - [facility] 09/23/2017 15:33:24 11/10/2018 text/html 32 y/o female who presents today for annual wwe. Wishes to refill current control pills. Complains of weekly migraines which she manages with Propranolol. Travis gutiérrez, [facility] 11/11/2018 18:01:30 11/09/2019 text/html OCP CheckReporte d bypatient.Associate d Symptoms:regular menses; no BTB menses; no side effects 32 y/o female who presents today for annual wwe. Wishes to refill current control pills. Complains of weekly migraines which she manages with Propranolol. Travis gutiérrez, [place] - [facility] 11/09/2019 18:51:20 OBGyn Episode Ob Episode Information Episode Created Date Number of Fetuses Patient Bloodtype Patient rh Status Prepregnancy Weight lbs Domestic Partner Domestic Partner Phone Father Name Educational Assistant Status 11/09/19 20 1 CLOSED Fetus Data First Name Last Name Admitted to NICU Weight (g) Sex Living Outcome Pediatric Complications Fetus ID Race Codes Race Delivery Type 2948.34 8 M Full Term [id number] Primary Ba Calculation Initial Ba Date Initial Exam Date Initial Exam Provider Initial Ultrasound Date Last Menstrual Period Date Ultra Sound Weeks Gestation 0 Eighteen To Twenty Week Ba Update Ultra Sound Date Fundal Height At Umbil Quickening Date Ultra Sound Latest Weeks Gestation Final Ba Confirmed By Final Ba Confirmed Date Final Ba Date Ultra Sound Latest Days Gestation 0 0 Menstrual History Last Menstrual Date Menses Monthly On Bcp Conception Prior Menses Frequency Hcg Plus Date Menarche Onset Age Delivery Information Delivery Date Delivery Type Labor Anesthesia Weeks Gestation Incision Type Labor Labor Length Hrs Delivered By Post Complications Tubal Sterilization Discharge Date Comments 0 Regional-Sp ina Discharge Information Feeding Method Contraceptive Method Maternal HG B and HCT Levels Ob Episode Information Episode Created Date Number of Fetuses Patient Bloodtype Patient rh Status Prepregnancy Weight lbs Domestic Partner Domestic Partner Phone Father Name Educational Assistant Status 11/09/19 20 1 CLOSED Fetus Data First Name Last Name Admitted to NICU Weight (g) Sex Living Outcome Pediatric Complications Fetus ID Race Codes Race Delivery Type , Spontane ous [id number] Ba Calculation Initial Ba Date Initial Exam Date Initial Exam Provider Initial Ultrasound Date Last Menstrual Period Date Ultra Sound Weeks Gestation 0 Eighteen To Twenty Week Ba Update Ultra Sound Date Fundal Height At Umbil Quickening Date Ultra Sound Latest Weeks Gestation Final Ba Confirmed By Final Ba Confirmed Date Final Ba Date Ultra Sound Latest Days Gestation 0 0 Menstrual History Last Menstrual Date Menses Monthly On Bcp Conception Prior Menses Frequency Hcg Plus Date Menarche Onset Age Delivery Information Delivery Date Delivery Type Labor Anesthesia Weeks Gestation Incision Type Labor Labor Length Hrs Delivered By Post Complications Tubal Sterilization Discharge Date Comments 8 8 Discharge Information Feeding Method Contraceptive Method Maternal HG B and HCT Levels
--- OUTSIDE RECORDS SUMMARY | 2024-09-23 05:52 | XMS_ITS | Clinical Summary ---
Author Organization [address] Address [address] [place] [id number] Care Team Providers Care Data Engineer Name Role Phone Laron Mckeon MD Primary [...] 36hr on/off OT Horrible c/[facility]--given ketamine Unsure on TOLAC Risk ut [...] second trimester 10/10/2020 01/19/2021 Overview (10/17/2020): Outside [place] [facility] scan 08-22-2020 EDC 01-09-21 by US, AGA 52%, nml limited astrid, breech, post placenta. (x ) complete astrid scan at [facility] ordered: 10-13-20 EFW 19%, nml astrid. rgs Normal in multigra abiel in third trimester 10/06/2020 01/19/2021 Overview (12/27/2020): 06-30-19 outside labs A positive, negative antibody screen Hemoglobin 14.2, platelets not recorded RPR nonreactive Urine culture negative Hep B surface antigen nonreactive HIV nonreactive Varicella immune rubella immune 5-10 GC/CT neg.rgs Midtrimester Labs Lab Results Component Value Date [id number] 97 10/06/2020 Lab Results Component Value Date HGB 12.0 10/06/2020 LABPLAT 262 10/06/2020 Lab Results Component Value Date [id number] Nonreactive 10/06/2020 LABRPR Nonreactive 10/06/2020 GBS: Lab Results Component Value Date MICROBIOLOGY Final Report: Negative 12/16/2020 Immunizations Immunization Administration Dates Next Due MMR 01/09/2021(Deferred: No longer needed - rubella immune) Pfizer SARS-CoV-2 Monovalent Vaccination (12+ Yrs) PURPLE 11/29/2020 Tdap 11/03/2020 Surgical History Surgery Date Site/Laterality Comments SECTION, LOW TRANSVERSE 06/03/2009 - 06/02/2010 OVARIAN CYST REMOVAL 06/03/2008 - 06/02/2009 Bilateral SECTION 01/06/2021 Medical History Medical History Date Comments Depression Anxiety ADD (attention deficit disorder) Gastroesophageal reflux disease without esophagi tis 12/21/2020 Family History Medical History Relation Name Comments Hypertension Father Anxiety disorder Mother Depression Mother Hypertension Mother No Known Problems Sister ADD / ADHD Son Relation Name Status Comments Father Alive Mother Alive Sister Alive Son Alive Social History Tobacco Use Types Packs/Day Years [...] often do you attend chur ch or yazidi services? Never 01/07/2021 Do you belong to any clubs o r organizations such as hinduism groups, unions, fraternal or athletic groups, or [...] things needed for daily living? No 01/07/2021 [place] Depression Scale Answer Date Recorded [place] Depression Scale Total 10 02/13/2021 The thought of harming myself has occurred to me . Never 02/13/2021 Comments No Sex and Gender Information Value Date Recorded Sex Assigned at Not on file Legal Sex Female 10:02 AM CDT Gender Identity Female 06/05/2022 8:01 PM DATA ENGINEER Sexual Orientation Straight 06/05/2022 8: 01 PM DATA ENGINEER Obstetrics History Para Term AB IAB SAB Ectopic Multiple Livin g Live Births 6 2 2 4 1 0 2 2 Date Outcome GA Total Labor Labor/2nd/3rd Weight Sex Type Anes PTL Heather A1 A5 Name Clin SAB 2006 AB D&C 2009 Term 41w 5d 2.948 kg (6 lb 8 oz) M CS-LT ranv Epidur al N Livin g Complications:Other (Comment ), [facility] turned to transverse 2016 AB D&C 2017 AB med 2020 Term 39w 4d 0h 02m 0h 02m 3.55 kg (7 lb 13.2 oz) F CS-LT ranv Epidur al N Livin g 8 8 RADHA Chi,VINCENZO LMEGA N Amie eDvi et Jannie lemons MD Complications:None Delivery Location:[facility] Main C ampus ([facility] L AND D PROCEDURE) Comments 2cm 'arrest' at [facility] cky>>>LTCS No GDM No GHTN Last Filed Vital Signs Vital Sign Reading [...] 03/30/2024 1:06 PM CDT Plan of Treatment Health Maintenance Due Date Last Done Comments Varicella Vaccines (1 of 2 - 13+ 2-dose series) 10/14/1999 Hepatitis B Screening 2004 Depression Screening 02/13/2022 02/13/2021 Cervical Cancer Screening 09/19/2022 09/19/2021 Regular Well Visit/Exam 18-64 10/02/2023, 09/19/2021 Covid-19 Vaccine (3 - 2023-2 5 season) 2024 12/19/2020, 11/29/2020 Influenza Vaccine (#1) 2024 DTaP/Tdap/Td Vaccine (2 - Td or Tdap) 11/03/2030 11/03/2020 Hepatitis C Screening Completed 03/30/2024 , 10/06/2020 HPV Vaccines Aged Out No longer eligi ble based on patient's age to complete this topic Pneumococcal vaccine <65 Aged Out No longer eligible based on patient's age to complete this topic Procedures Procedure Name Priority Date/Time Associated Diagnosis [...] LAB MICROBIOLOGY - GENERAL ORDERABLES Final Result [facility] [address] [facility] [place] [address] * Pap and High Risk HPV, reflex to Genotyping (09/19/2021 2:32 PM CDT) Thin prep (Pap test) 09/19/2021 2:32 PM CDT 09/21/2021 12:53 PM CDT Narrative PATHOLOGY [facility] [place] - 09/25/2021 2:37 PM CDT EPIC results best viewed via link to PDF [address] [address] Tele: Krys Bowman MD - [employer] CYTOLOGY REPORT Note to Patients: This report [...] Patient Name: SHAQ BLUNT Address: [address], [place] [address] Gender: F : 1985 (Age: 35) Service: Location: N : [id number] Hospital #: [id number] Patient Type: [facility] Taken: 09/19/2021 Reported: 09/25/2021 Physician(s): RAYA [...] recommended by your physician or nurse practitioner. us Briseida Hodgson COIL REWIND MACHINE OPERATOR LAB CYTOLOGY ORDERABLE S Final Result PATHOLOGY [facility] Laboratory Receiving [address] [place], [place] [id number] from Last 3 Months or Most Recently Relevant to Health [place] [address] [facility] [place] [facility] [place] [facility] [place] Advance Directives For more information, please contact: [phone] * Full Code (Latest Code Status on File) Date Activated Date Inactivated Comments 01/06/2021 4:41 PM 01/09/2021 8:07 PM * Full Code Date Activated Date Inactivated Comments 01/04/2021 11:10 PM 01/06/2021 4:40 PM Full CPR in c ase of cardiopulmonary arrest Care Teams Data Engineer Relationship Specialty Start Date End Date Laron Mckeon MD [address] [place], [place] [address]ORIN RODAS [address] [place] [address] PCP - General Internal Medicine 01/31/21
[2024-09-23 05:59] VITALS: BP 135/90; PULSE 100; RESP 19; TEMP 36.2; O2SAT 100
--- NOTE | 2024-09-23 07:21 | ED.FALL ---
HPI - Fall General Chief Complaint: Fall Stated Complaint: fall Time Seen by Provider: 09/23/24 07:20 Source: patient and family Mode of arrival: ambulatory Limitations: no limitations History of Present Illness HPI Narrative: 38 years old white female, healthy otherwise, came to the ED because of a fall. Patient was taking a shower, slipped in the bathtub hit the back of the head on the wall prior to falling. She denies loss of consciousness, complaining of occipital headache. She denies other injuries. Last tetanus shot was 2020 Related Data Home Medications ?Medication ?Instructions ?Recorded ?Confirmed ?Last Taken ?Type fluoxetine 20 mg capsule (Prozac) 20 mg PO DAILY 08/28/20 Unknown History [id number] 1 mg tablet PO 08/28/20 Unknown History tablet zolpidem 10 mg tablet (Ambien) 10 mg PO HS PRN Insomnia 08/28/20 Unknown History Allergies Allergy/AdvReac Type Severity Reaction Status Date / Time No Known Allergies Allergy Verified 08/28/20 14:23 Review of Systems Review of Systems: All systems reviewed & are unremarkable except as noted in HPI and below PMFSH Past Medical History Medical History Migraine Anxiety Social History Social History Smoking status: Never smoker Exam Narrative: General appearance: Well-developed, well-nourished Skin: Normal color Head: Normocephalic, occipital abrasion Eyes: Clear conjunctiva ENT: Oropharynx normal, ears normal, nose normal Neck: Supple, nontender Chest and respiratory: Airway patent, no respiratory distress, no accessory muscle use Heart: Regular rate/rhythm Abdomen: Soft, nontender, no organomegaly, quiet bowel sounds Vascular: Normal peripheral pulses, normal capillary refill. Musculoskeletal: Normal range of motion, nontender back Neurologic: Alert and oriented ?3, [employer] is normal as tested, no gross motor deficit Course Vital Signs Vital signs: Vital Signs Temperature 36.2 C L 09/23/24 05:59 Pulse Rate 100 09/23/24 05:59 Respiratory Rate 19 09/23/24 05:59 Blood Pressure 135/90 09/23/24 05:59 Pulse Oximetry 100 09/23/24 05:59 Oxygen Delivery Room Air 09/23/24 05:59 Temperature 36.2 C L 09/23/24 05:59 Pulse Rate 82 09/23/24 08:10 Respiratory Rate 18 09/23/24 08:10 Blood Pressure 124/86 09/23/24 08:10 Pulse Oximetry 99 09/23/24 08:10 Oxygen Delivery Room Air 09/23/24 05:59 MDM - Fall MDM Narrative Medical decision making narrative: Patient had a fall in the bathtub prior to arrival, dose of color no loss of consciousness Physical examination showing occipital abrasion CT head and CT cervical spine without contrast showed no acute abnormality Last tetanus shot was 4 years ago Imaging Data Radiologist's impression: Impressions Head CT 09/23/24 07:48 Impression: No significant abnormality seen. Cervical Spine CT 09/23/24 08:03 Impression: No acute fracture or subluxation of the cervical spine. 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 Critical Care Time Critical Care Time Critical Care Time: No Discharge Plan Discharge Clinical Impression: CHI (closed head injury) Patient Disposition: Home Condition: Stable Instructions: Head Injury (ED) Additional Instructions: Return if symptoms are worsening , call your family physician for appointment, take Tylenol, ibuprofen as as needed for aches and pain, continue home medications. Patient Language: Syriac Prescriptions: No Action 1 mg Tablet PO zolpidem [Ambien] 10 mg Tablet 10 mg PO HS PRN (Reason: Insomnia) fluoxetine [Prozac] 20 mg Capsule 20 mg PO DAILY Follow-up/Referrals: UNKNOWN,DOCTOR [Primary Care Provider] -
--- OUTSIDE RECORDS SUMMARY | 2024-09-23 08:08 | XMS_ITS | Continuity of Care Document ---
Author Organization [facility] Address [address] [place] [address] Phone Care Team Providers Care Surgical Technician Name Role Phone Romeo Gaitan MD Unavailable Unavailable Allergies, Adverse Reactions, Alerts Substance Reaction Status Criticality No Known Allergies Active No Inform ation Medications Medication Instructions Dosage Effective Dates (start - stop) Status Comments Ambien 10 mg tablet take 1 tablet by ora l route every day at bedtime 10 MG - Active Wellbutrin XL 150 mg 24 hr tablet, extended release take 1 tablet by oral route every morning 150 MG - Active Adderall 20 mg tablet take 1 tablet by o ral route 2 times every day before breakfast and at noon 20 MG - Active Procedures Procedure Date PREV [...] on Encounter PREV VISIT, EST, AGE 18-39 [facility], [address] [place], [address], [place] tel:[phone] [facility] Medicine physical (chief complaint) Encounter for general adult medical exam w abnormal findingsPrimary insomniaGeneralized Anxiety DisorderAttention deficit 2 Arnie Walters. [address], [place], [place], [address] , [place]. tel:[phone] OFFICE/OUTPA TIENT VISIT, [facility], [address], [place], [place], [address], [place] tel:[phone] [facility] sinus1 (chief complaint) insomnia1 (chief complaint) headache1 (chief complaint) InsomniaMigraineAcu te sinusitis 9 Arnie Walters. [address], [place], [place], [address] , [place]. tel:[phone] OFFICE/OUTPA TIENT VISIT, [facility], [address], [place], [place], [address], [place] tel:[phone] [facility] insomnia1 (chief complaint) anxiety1 (chief complaint) headache1 (chief complaint) allergy1 (chief complaint) MigraineInsomniaGen eralized Anxiety DisorderAllergic rhinitis 9 Arnie Walters. [address], [address], [place], [place], [address] , [place]. tel:[phone] OFFICE/OUTPA TIENT VISIT, [facility], [address], [place], [place], [address], [place] tel:[phone] [facility] insomnia1 (chief complaint) anxiety1 (chief complaint) migraine1 (chief complaint) allergy1 (chief complaint) Allergic rhinitisInsomniaMig raineGeneralized Anxiety Disorder 8 Arnie Walters. [address], [place], [place], [address] , [place]. tel:[phone] Referring Provider: Li [address], [place], [place], [address]. tel:[phone] OFFICE/OUTPA TIENT VISIT, [facility], [address], [place], [place], [address], [place] tel:[phone] [facility] migraine1 (chief complaint) anxiety1 (chief complaint) insomnia1 (chief complaint) MigraineInsomniaGen eralized Anxiety Disorder 8 Arnie Guzman [address], [place], [place], [address] , [place]. tel:[phone] Referring Provider: Li [address], [place], [place], [address]. tel:[phone] OFFICE/OUTPA TIENT VISIT, [facility], [address], [place], [place], [address], [place] tel:[phone] [facility] headache1 (chief complaint) insomnia1 (chief complaint) anxiety1 (chief complaint) InsomniaMigraineGen eralized Anxiety Disorder 8 Arnie Guzman [address], [place], [place], [address] , [place]. tel:[phone] Referring Provider: Li [address], [place], [place], [address]. tel:[phone] OFFICE/OUTPA TIENT VISIT, [facility], [address], [place], [place], [address], [place] tel:[phone] [facility] headache1 (chief complaint) insomnia1 (chief complaint) anxiety1 (chief complaint) InsomniaGeneralized Anxiety DisorderMigraineTob acco use 8 Arnie [address], [place], [place], [address] , [place]. tel:[phone] Referring Provider: Li [address], [place], [place], [address]. tel:[phone] OFFICE/OUTPA TIENT VISIT, [facility], [address], [place], [place], [address], [place] tel:[phone] [facility] anxiety1 (chief complaint) insomnia1 (chief complaint) tobacco1 (chief complaint) InsomniaTobacco useGeneralized Anxiety Disorder 7 Arnie Guzman [address], [place], [place], [address] , . tel:[phone] Referring Provider: Romeo Gaitan, [address], [place], [place], [address]. tel:[phone] PREV VISIT, NEW, AGE 18-39 [facility], [address], [place], [place], [address], [place] tel:[phone] [facility] Medicine PHysical (chief complaint) Encntr for general adult medical exam w/o abnormal findings 7 Arnie Walters. [address], [place], [place], [address] , [place]. tel:[phone] Family History Family Member Type Diagnosis Age At Onset Mother Problem (finding) Alive and well Father Problem (finding) Alive and well Sister Problem (finding) Alive and well Payers Payer name Insurance type Covered alliance party ID Authoriza tion(s) No Information Social History [...] Of Treatment Date Type Action Status Goal Tobacco cessation counseling completed Goal Special diet education compl eted Goal [...] Pt will see new psychiatrist in April. headache1 Patient has migr dolly headache. Patient takes propranolol. Patient takes Maxalt PRN for acute headache. Patient has headache once or twice per month. sinus1 Pt c/o sinus con gestion, purulent sinus drainage, sinus pressure, headache, for one week pt denies any sore throat or earache. Pt denies any fever Pt denies any recent ravel. 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 Patient denies any snoring. Patient takes Ambien and doing ok. anxiety1 Patient has transport conductor priyanka anxiety and depression. Patient denies any suicidal homicidal thoughts. Patient denies any crying spells. Patient takes Wellbutrin and prozac and doing okay. Patient noticed more motivation. Patient denies any hopelessness. headache1 Patient has migr dolly versus cluster [...] states that 40 mg BID causes lightheadedness. allergy1 Pt has chronic s inus allergy. Pt doing ok with josephine D Pt denies any purulent dinus drainage and she denies any sinus pain allergy1 Patient has transport conductor rpiyanka sinus allergy. Patient takes Josephine-D daily. Patient needs refill. Patient denies any purulent sinus drainage. 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 Patient denies any snoring. Patient takes Ambien again okay anxiety1 Patient has transport conductor priyanka anxiety and depression. Patient denies any suicidal homicidal thoughts. Patient denies any crying spells. Patient takeswellburrin and prozac and doing okay. Patient noticed more motivation. Patient denies any hopelessness. migraine1 Patient has migr dolly versus cluster headache. Patient states that propranolol is helping. Patient failed Topamax in the past. Patient states that she has mild headache about once per week now. Patient states that Maxalt does relieve the headache. Patient denies any acute headache. migraine1 Pt has migraine headache with throbbing [...] per week Pt denies any acute headache anxiety1 Pt has chronic a nxiety and depression Pt states that she feels more depressed recently and she wants to go back to prozac and wellbutrin again. Pt is on wellbutrin only now pt denies any suicidal or homicidal thought pt denies any crying spells insomnia1 Pt doing ok with ambien. pt denies any snoring insomnia1 Pt doing ok with ambien qhs PRN anxiety1 Pt has chronic a nxiety and depression pt is on wellbutrin now and she is doing well Pt denies any suicidal or homicidal thought Pt denies any crying spels headache1 Pt has migraine headache. Pt has headache daily pt has throbbing headache without photophobia. Pt does become sensitive to light during headache. pt has headache for years Pt denies any worsening headache Pt denies any head injury or waking up at night with headache Pt states that topamax did not help at all headache1 Pt has chronic m igraine since 1st grade Pt had normal MRI of brain in the past Pt denies any head injury. Pt denies waking up at night with headache. Pt has headache daily. Pt has photophobia and nausea with headache Pt states that she has been having headache daily during the last several weeks. anxiety1 Pt has chronic a nxiety and depression Pt stopped prozac on her own Pt is only on wellbutrin now and she is doing ok. Pt also quit smoking. insomnia1 Pt has chronic i nsomnia. pt takes ambien qhs PRn and doing ok. Pt denies any snoring anxiety1 Pt has chronic a nxiety and depression. Pt takes prozac and doing ok. Pt denies any suicidal or homicidal thought. Pt denies any cyring spells insomnia1 Pt has insomnia. Pt denies any snoring or any trouble with breathing at night. pt takes ambien qhs PRn and doing ok tobacco1 Pt quit smoking. Pt is last week for 7 mg patch. Pt has not smoked since two months ago. Pt also takes zyban. Pt wants to continue on it PHysical Pt needs annual physical. pt has [...] o Body mass index (BMI) 26.0-26.9, adult Patient instructed o n use of saline sprays. Related to Allergic rhinitis Instructions given f or sinus irrigation. Related to Allergic rhinitis Increase physical activity Relat ed to Insomnia Increase physical activity Relat ed to Insomnia Increase physical activity Relat ed to Insomnia Quit smoking. Related to Encnt r for general adult medical exam w/o abnormal findings Increase activity. Related to En cntr for general adult medical exam w/o abnormal findings Assessments Type Assessment Date assessment Encounter for general adult medi tana exam w abnormal findings assessment Primary insomnia assessment Generalized Anxiety Disorder Jan assessment Attention deficit Mental Status Date Cognitive Assessment Orientation - [place] ed to time, place, person, situation.
--- OUTSIDE RECORDS SUMMARY | 2024-09-23 08:08 | XMS_ITS | Referral Summary ---
Author Organization [address] Address [address] [place] [address] Care Team Providers Care Fixing Carpenter Name Role Phone Laron Mckeon MD Primary [...] 36hr on/off OT Horrible c/s experience at [facility]--given ketamine Unsure on TOLAC Risk ut rupture [...] second trimester 10/10/2020 01/19/2021 Overview (10/17/2020): Outside [place] scan 08-22-2020 EDC 01-09-21 by US, AGA 52%, nml limited astrid, breech, post placenta. (x ) complete [facility] scan at [facility] ordered: 10-13-20 EFW 19%, nml astrid. rgs Normal in multigra abiel in third trimester 10/06/2020 01/19/2021 Overview (12/27/2020): 06-30-19 outside labs A positive, negative antibody screen Hemoglobin 14.2, platelets not recorded RPR nonreactive Urine culture negative Hep B surface antigen nonreactive HIV nonreactive Varicella immune rubella immune 5-10 GC/CT neg.rgs Midtrimester Labs Lab Results Component Value Date [id number] 97 10/06/2020 Lab Results Component Value Date HGB 12.0 10/06/2020 LABPLAT 262 10/06/2020 Lab Results Component Value Date [id number] Nonreactive 10/06/2020 LABRPR Nonreactive 10/06/2020 GBS: Lab [...] often do you attend chur ch or quaker services? Never 01/07/2021 Do you belong to any clubs o r organizations such as sabianism groups, unions, fraternal or athletic groups, or [...] things needed for daily living? No 01/07/2021 Orla Depression Scale Answer Date Recorded Orla Depression Scale Total 10 02/13/2021 The thought of harming myself has occurred to me . 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 Sexual Orientation Straight 06/05/2022 8: 01 PM SENIOR SYSTEMS PROGRAMMER Last Filed Vital Signs Vital Sign Reading [...] GENERAL ORDERABLES Final Result [facility] Department [place] [address] * Pap and High Risk HPV, reflex to Genotyping (09/19/2021 2:32 PM CDT) Thin prep (Pap test) 09/19/2021 2:32 PM CDT 09/21/2021 12:53 PM CDT Narrative PATHOLOGY [facility] - 09/25/2021 2:37 PM CDT EPIC results best viewed via link to PDF [place] [id number] [facility], [place], [place] [address] Tele: Krys Bowman MD - Fingernail Former CYTOLOGY REPORT Note to Patients: This report [...] Name: SHAQ BLUNT Address: [address], [place] [address] Gender: F : 1985 (Age: 35) Service: Location: [facility] : [id number] Hospital #: [id number] Patient Type: [facility] SPECIMEN Taken: 09/19/2021 Reported: 09/25/2021 Physician(s): RAYA [...] your physician or nurse practitioner. Briseida Hodgson DATA MANAGEMENT ASSOCIATE LAB CYTOLOGY ORDERABLE S Final Result PATHOLOGY [facility] Laboratory Receiving [address] [place] [address] from Last 3 Months or Most Recently Relevant to Health Maintenance [place] [address] [employer] [place] Advance Directives For more information, please contact: [phone] * Full Code (Latest Code Status on File) Date Activated Date Inactivated Comments 01/06/2021 4:41 PM 01/09/2021 8:07 PM * Full Code Date Activated Date Inactivated Comments 01/04/2021 11:10 PM 01/06/2021 4:40 PM Full CPR in c ase of cardiopulmonary arrest Care Teams Fixing Carpenter Relationship Specialty Start Date End Date Laron Mckeon MD [facility] [address] Luba RODAS [address] [place] [id number] PCP - General Internal Medicine 01/31/21
--- OUTSIDE RECORDS SUMMARY | 2024-09-23 08:08 | XMS_ITS | Clinical Summary ---
Author Organization [address] Address [address] [place] [address] Care Team Providers Care Mold Designer Name Role Phone Laron Mckeon MD Primary [...] 36hr on/off [facility] Unsure on TOLAC Risk ut [...] second trimester 10/10/2020 01/19/2021 Overview (10/17/2020): Outside [facility] OB scan 08-22-2020 EDC 01-09-21 by US, AGA 52%, nml limited astrid, breech, post placenta. (x ) complete astrid scan at [facility] ordered: 10-13-20 EFW 19%, nml astrid. rgs Normal in multigra abiel in third trimester 10/06/2020 01/19/2021 Overview (12/27/2020): 06-30-19 outside labs A positive, negative antibody screen Hemoglobin 14.2, platelets not recorded RPR nonreactive Urine culture negative Hep B surface antigen nonreactive HIV nonreactive Varicella immune rubella immune 5-10 GC/CT neg.rgs Midtrimester Labs Lab Results Component Value Date [id number] 97 10/06/2020 Lab Results Component Value Date HGB 12.0 10/06/2020 LABPLAT 262 10/06/2020 Lab Results Component Value Date [id number] Nonreactive 10/06/2020 LABRPR Nonreactive 10/06/2020 GBS: Lab [...] any clubs o r organizations such as episcopal groups, unions, fraternal or athletic groups, or [...] things needed for daily living? No 01/07/2021 Canyon Depression Scale Answer Date Recorded Canyon Depression Scale Total 10 02/13/2021 The thought of harming myself has occurred to me . 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 Sexual Orientation Straight 06/05/2022 8: 01 PM FLAT FOLDING MACHINE OPERATOR Obstetrics History Para Term AB IAB SAB [...] Livin g Complications:Other (Comment ), [facility] turned to transverse 2016 AB D&C 2017 AB med 2020 Term 39w 4d 0h 02m 0h 02m 3.55 kg (7 lb 13.2 oz) F CS-LT ranv Epidur al N Livin g 8 8 RADHA Chi,VINCENZO LMEGA N Amie Devi et Jannie lemons MD Complications:None Delivery Location:[facility] Main C ampus ([facility] L AND D PROCEDURE) Comments 2cm 'arrest' at [facility] cky>>>LTCS No GDM No GHTN Last Filed [...] 5 season) 2024 12/19/2020, 11/29/2020 Influenza Vaccine (Season Ended) 2025 DTaP/Tdap/Td Vaccine (2 - Td or Tdap) [...] MICROBIOLOGY - GENERAL ORDERABLES Final Result [facility] Department [place] [address] * Pap and High Risk HPV, reflex to Genotyping (09/19/2021 2:32 PM CDT) Thin prep (Pap test) 09/19/2021 2:32 PM CDT 09/21/2021 12:53 PM CDT Narrative PATHOLOGY [facility] - 09/25/2021 2:37 PM CDT EPIC results best viewed via link to PDF [address] [address] Tele: Krys Bowman MD - Gaming Manager CYTOLOGY REPORT Note to Patients: This report [...] Patient Name: SHAQ BLUNT Address: [address], [place] [address] Gender: F : 1985 (Age: 35) Service: Location: N : [id number] Hospital #: [id number] Patient Type: [facility] SPECIMEN Taken: 09/19/2021 Reported: 09/25/2021 Physician(s): RAYA [...] physician or nurse practitioner. us Briseida Hodgson MEN'S LOCKER ROOM ATTENDANT LAB CYTOLOGY ORDERABLE S Final Result PATHOLOGY [facility] Laboratory Receiving [address] [place], [place] [id number] from Last 3 Months or Most Recently Relevant to [place] [id number] [employer] [place] [employer] [place] [employer] [place] Advance Directives For more information, please contact: [phone] * Full Code (Latest Code Status on File) Date Activated Date Inactivated Comments 01/06/2021 4:41 PM 01/09/2021 8:07 PM * Full Code Date Activated Date Inactivated Comments 01/04/2021 11:10 PM 01/06/2021 4:40 PM Full CPR in c ase of cardiopulmonary arrest Care Teams Mold Designer Relationship Specialty Start Date End Date Laron Mckeon MD [address] [place], [place] [address]OR[address] [place] [address] PCP - General Internal Medicine 01/31/21
[2024-09-23 08:10] VITALS: BP 124/86; PULSE 82; RESP 18; O2SAT 99
[2024-09-23] MEDS: HYDROcodone/acetaminophen (*CRX) 5-325 MG TABLET 1 TAB PO (08:10)
[2024-09-23] MEDS: IBUPROFEN 600 MG TABLET PO (08:10)
== END 2024-09-23 08:51 | disposition home or self-care (01) ==
PROVIDERS: Emergency Provider Emergency Medicine
DX: S09.90XA Unspecified injury of head, initial encounter (principal); F41.9 Anxiety disorder, unspecified; W18.2XXA Fall in (into) shower or empty bathtub, initial encounter
CPT/HCPCS: 70450; 72125; 99284; A9270